=== PATIENT | male | born 1965 | race Caucasian/White ===

== ENCOUNTER 2016-11-15 06:11 | Inpatient (IN) | payer BC ==
[2016-11-10 13:06] LABS: HEMATOCRIT 39.9 % (40.0-51.0); HEMOGLOBIN 13.4 g/dL (13.6-17.8)
[2016-11-10 13:18] LABS: BUN (BLOOD UREA NITROGEN) 16 MG/DL (6-23); CALCIUM, SERUM 8.7 MG/DL (8.5-10.4); CHLORIDE, SERUM 102 MMOL/L (96-112); CO2 (CARBON DIOXIDE) 27 MMOL/L (24-34); CREATININE 1.03 MG/DL (0.70-1.30); GFR AFRICAN AMERICAN 96 ML/MIN (>=60); GFR NON AFRICAN AMERICAN 83 ML/MIN (>=60); POTASSIUM, SERUM 3.9 MMOL/L (3.5-5.3); SODIUM, SERUM 136 MMOL/L (135-148)
[2016-11-10 13:19] LABS: GLUCOSE, SERUM 114 MG/DL (60-99)
[2016-11-10 13:56] LABS: ASCORBIC ACID (UR NOT ORDER) NEG (NEG); BILIRUBIN, URINE NEGATIVE (NEG); KETONE, URINE NEGATIVE (NEG); LEUKOCYTE ESTERASE(NOT OR NEG (NEG); WBC (NOT ORDERED) (RFLEX) < 1 (0-5)
--- NOTE | ~2016-11-15 | DS ---
Discharge Summary [facility] [address] [place]. [address] NAME: NORA KLEIN : 63 STATUS : DIS IN PAT#: [id number] AGE: 51 ADM/REG DATE : 11/15/16 MR#: [id number] REPORT SERV DATE: 11/27/16 DICTATED BY: SAM AMGANA JR. DATE: 11/27/16 REPORT STATUS : Draft TRANSCRIBED BY: MODNirmala DATE: 11/27/16 Data Collection from hospitalization DISCHARGE DIAGNOSES: 1. Left renal mass. 2. Hypertension. 3. Hypercholesterolemia. 4. Gastroesophageal reflux disease. 5. Sleep apnea. CONSULTATIONS: None. PROCEDURES PERFORMED: Laparoscopic partial nephrectomy on the left on 11/15/2016. PATHOLOGY: Left kidney partial nephrectomy - renal cell carcinoma. Histologic type - clear cell size - greatest tumor dimension - 1.9 cm. Tumor focality - unifocal, histologic grade 2. Sarcomatoid features - absent. Microscopic tumor extension - tumor limited to kidney. Renal vein or segmental branch invasion - not resected. Status of margins - deep margin focally involved, peripheral margins free. Lymph nodes - hilar - none resected. Additional pathologic findings - none. Pathologic stage I (pT1a pNX). MEDICATIONS: Tessalon 100 mg three times a day, Wellbutrin XL 300 mg every morning, Colace 100 mg twice a day, Eden 180 mg daily, Vyvanse 60 mg every morning, Prinivil 20 mg every morning, Singulair 10 mg daily, fish oil 1200 mg every morning, Prilosec 20 mg daily as needed, and Sudafed 30 mg every six hours as needed. CONDITION AT DISCHARGE: Stable. DISPOSITION: The patient was discharged home on a regular diet with activities as instructed. He would call my office for a followup appointment. HOSPITAL COURSE: This is a 51-year-old man who had been found to have a 2 cm anterior centrally located renal mass. For the most part, it was endophytic and abutting the renal hilar structures. He presented on the day of this admission to undergo surgical intervention. On CT scan, he was found to have a singular renal artery that was entering the kidney just superior and posterior to the renal vein. He was admitted to the hospital for further evaluation and treatment. Upon admission, he was taken to the operating room where he underwent the above-mentioned procedure. He tolerated this well, and there were no complications. On postop day #1, he had no nausea or vomiting. The Benavides catheter was removed. Clear liquids were started. We encouraged him to ambulate. On 11/17/2016, he had no new complaints. He did have a bowel movement and he was passing flatus. He had mild abdominal distention. 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 We advanced his diet. He continued to progress. Discharge planning was performed. On 11/19/2016, he had multiple bowel movements. He remained afebrile. His vital signs were stable. Discharge instructions were given. Due to his improved and stable condition, he was discharged home with the above-stated instructions. Discharge Summary [address] [place]. [address] NAME: NORA KLEIN : 63 STATUS : DIS IN PAT#: [id number] AGE: 51 ADM/REG DATE : 11/15/16 MR#: [id number] REPORT SERV DATE: 11/27/16 DICTATED BY: SAM MAGANA JR. DATE: 11/27/16 REPORT STATUS : Draft TRANSCRIBED BY: ZACHARIAH DATE: 11/27/16 Information collected by: Lucretia Greenberg I submit the above information as my discharge summary. TG/ZACHARIAH Sam Magana Jr., M.D. / [id number] CC: Priscila Worthington Jr., M.D.
--- NOTE | ~2016-11-15 | OP ---
Record Of Operation [facility] [address] [place]. [address] NAME: NORA KLEIN : 63 STATUS : ADM IN PAT#: [id number] AGE: 51 ADM/REG DATE : 11/15/16 MR#: [id number] REPORT SERV DATE: 11/15/16 DICTATED BY: SAM MAGANA JR. DATE: 11/15/16 REPORT STATUS : Draft TRANSCRIBED BY: MODL DATE: 11/15/16 DATE OF PROCEDURE: 11/15/2016 SURGEON: Sam Magana M.D. PREOPERATIVE DIAGNOSIS: Left renal mass. POSTOPERATIVE DIAGNOSIS: Left renal mass. PROCEDURE PERFORMED: Laparoscopic partial nephrectomy on the left. COMPLICATIONS: None. CONSULTATIONS: None. ANESTHESIA: General with an endotracheal tube. SPECIMENS: Left partial nephrectomy. DRAINS: A 16-Yi Benavides catheter. ESTIMATED BLOOD LOSS: 20 mL. INDICATION: Mr. klein is a 51-year-old gentleman, who is noted to have a 2 cm anterior centrally located renal mass. It was for the most part endophytic and abutting the renal hilar structures. He comes today for partial nephrectomy, possible radical nephrectomy if margins were positive. On CT scan, he was noted to have a singular renal artery that was entering the kidney just superior and posterior to the renal vein. PROCEDURE IN DETAIL: After the patient was identified and proper informed consent was obtained, he was taken to the operating room. General anesthesia was performed without complication using an endotracheal tube. He was then prepped and draped in normal sterile fashion in the modified thoracoabdominal position. A midline incision through the umbilicus was made and a 12 mm trocar was placed into the peritoneal cavity. Peritoneum was inspected and found to be for the most part normal, there were no adhesions noted. The surface of the spleen appeared normal. The colon and small intestine also appeared normal. I then placed two other 12 mm trocars, one just to the left of the falciform ligament, one in the left lower quadrant, and a 5 mm trocar at the costophrenic angle. I then began by mobilizing the left hemicolon and the splenic flexure by incising the white line of Toldt, and the renal colic, and renal colic ligaments. I reflected the colon and its mesentery medially to expose the hilum of the kidney. I dissected down along the renal vein and gonadal vein to expose the renal vein in its entirety. I did not dissect posterior to the renal vein, but did get margins on each side of the superior and inferior surfaces. I also identified the singular renal artery that bifurcated and circumferentially dissected out the renal artery. Once this had been completed, I used intraoperative laparoscopic ultrasound to identify the location of the tumor and incised Gerota's fascia inferior to this and lifted Gerota's Record Of Operation [address] [place]. [address] NAME: NORA KLEIN : 63 STATUS : ADM IN PAT#: [id number] AGE: 51 ADM/REG DATE : 11/15/16 MR#: [id number] REPORT SERV DATE: 11/15/16 DICTATED BY: SAM MAGANA JR. DATE: 11/15/16 REPORT STATUS : Draft TRANSCRIBED BY: ZACHARIAH DATE: 11/15/16 fascia off the anterior surface of the kidney to expose the tumor, which was on the superior medial side of the renal hilum. On ultrasonic imaging this appeared to abut the renal sinus, but there was a small margin that could be taken along the medial surface, my biggest concern was the hilar margin. I then instructed the Anesthesiology team to give the patient 12.5 g of mannitol, this was given five minutes later, the renal artery was clamped, and I excised the tumor with good visibility. I was able to lift the tumor up and come along the right over the course of the superior branch of the renal vein, and then up behind the tumor, and what appeared to be negative margins. There was a glistening yellow color to the bottom surface of the tumor at the apex of the resection, but I did not interrupt the capsule or pseudo capsule of the tumor. Once this had been completed, I placed the specimen into an Endobag and placed off to the side. I then began by closing the central defect of the resection using a 2-0 Vicryl suture in a running fashion, I did this two times with an ischemic time of approximately 20 minutes. I then flashed the bulldog clamp and there was still a little bit of bleeding in the inferior most portion of the defect right over the renal hilum. I placed another [id number] suture in this area which did complete the hemostatic process and the clamp was removed right at 30 minutes of ischemic time. Once this had been completed, I used argon beam to cauterize the defect of the kidney, and then placed pledgeted capsular sutures to close the capsular defect. I also used Floseal and Surgicel over the defect and then closed Gerota's fascia over the top by replacing in its natural position using a 2-0 Vicryl suture. Once this had been completed, I then checked once again for hemostasis. I looked at the surface of the renal artery and appeared to be pulsatile and functioning well. The kidney was nice pink in color and I did not note any evidence of any ischemia at that point, I removed the Endobag through the umbilical incision and as well as removing the other trocars. I then closed the umbilicus using a 0 looped PDS suture in a running fashion. The skin of each incision was then closed with 3-0 Vicryl in the Adiel's fascia and a 4-0 Monocryl in the skin. The patient was awakened in the operating room and transferred to the postanesthesia care unit in stable condition. CHRISTIANO/ZACHARIAH Sam Magana Jr., M.D. / [id number] CC: Sam Magana Jr., M.D.
[~2016-11-15 06:11] MED LIST: ALLEGRA180 PO; CLARIT10 PO; DOX10 PO; EFFEX37.5 PO; FISH OIL1200 MG PO; MULTIVITAMI1 PO; PRILO PO; PRIN20 PO; SINGULAIR1 PO; SUDAFED PO; TESS PO; VIB100 PO; VYVANSE60 MG OR; WELLXL300 PO; [UNRECOGNIZED DRUG - OTHER] PO
[2016-11-15 12:26] LABS: BASOPHILS 0 %; EOSINOPHILS 0.6 %; EOSINOPHILS ABSOLUTE 0.03 10/3/uL (0.0-0.53); HEMOGLOBIN 11.8 g/dL (13.6-17.8); IMMATURE GRANULOCYTES 0.4 %; IMMATURE GRANULOCYTES ABSOLUTE 0.02 10/3/uL (0.0-0.11); LYMPHOCYTES 11.5 %; LYMPHOCYTES ABSOLUTE 0.59 10/3/uL (0.67-4.30); MEAN CORPUS HGB CONC 33.9 g/dL (32.0-36.0); MEAN CORPUSCULAR HEMOGLOB 25.6 pg (26.0-34.0); MEAN CORPUSCULAR VOLUME 75.5 fL (80-100); MEAN PLATELET VOLUME 8.6 fL (9.2-13.0); MONOCYTES 2.3 %; MONOCYTES ABSOLUTE 0.12 10/3/uL (0.21-1.20); NEUTROPHILS 85.2 %; NEUTROPHILS ABSOLUTE 4.37 10/3/uL (2.02-8.40); RBC DISTRIBUTION WIDTH 14.2 % (12.0-16.0); RED CELL COUNT 4.61 10/6/uL (4.7-6.1); WHITE BLOOD CELLS 5.1 10/3/uL (4.5-10.5)
[2016-11-15 12:27] LABS: HEMATOCRIT 34.8 % (40.0-51.0); MANUAL DIFF NO %; PLATELET COUNT 157 10/3/uL (150-400)
[2016-11-15 12:51] LABS: BUN (BLOOD UREA NITROGEN) 12 MG/DL (6-23); CALCIUM, SERUM 8.4 MG/DL (8.5-10.4); CHLORIDE, SERUM 102 MMOL/L (96-112); CO2 (CARBON DIOXIDE) 26 MMOL/L (24-34); GFR AFRICAN AMERICAN 80 ML/MIN (>=60); GFR NON AFRICAN AMERICAN 69 ML/MIN (>=60); GLUCOSE, SERUM 146 MG/DL (60-99); POTASSIUM, SERUM 4.8 MMOL/L (3.5-5.3); SODIUM, SERUM 135 MMOL/L (135-148)
[2016-11-16 05:33] LABS: BASOPHILS 0.1 %; BASOPHILS ABSOLUTE 0.01 10/3/uL (0.0-0.16); EOSINOPHILS 0 %; HEMATOCRIT 35.1 % (40.0-51.0); HEMOGLOBIN 11.8 g/dL (13.6-17.8); IMMATURE GRANULOCYTES 0.3 %; IMMATURE GRANULOCYTES ABSOLUTE 0.03 10/3/uL (0.0-0.11); LYMPHOCYTES 10.3 %; LYMPHOCYTES ABSOLUTE 0.99 10/3/uL (0.67-4.30); MEAN CORPUS HGB CONC 33.6 g/dL (32.0-36.0); MEAN CORPUSCULAR HEMOGLOB 25.5 pg (26.0-34.0); MONOCYTES 8.8 %; MONOCYTES ABSOLUTE 0.85 10/3/uL (0.21-1.20); NEUTROPHILS 80.5 %; NEUTROPHILS ABSOLUTE 7.75 10/3/uL (2.02-8.40); PLATELET COUNT 185 10/3/uL (150-400); RBC DISTRIBUTION WIDTH 14.2 % (12.0-16.0); RED CELL COUNT 4.62 10/6/uL (4.7-6.1)
[2016-11-16 05:34] LABS: MANUAL DIFF NO %; WHITE BLOOD CELLS 9.6 10/3/uL (4.5-10.5)
[2016-11-16 05:48] LABS: BUN (BLOOD UREA NITROGEN) 12 MG/DL (6-23); CALCIUM, SERUM 8.2 MG/DL (8.5-10.4); CHLORIDE, SERUM 103 MMOL/L (96-112); CO2 (CARBON DIOXIDE) 27 MMOL/L (24-34); GFR AFRICAN AMERICAN 100 ML/MIN (>=60); GFR NON AFRICAN AMERICAN 86 ML/MIN (>=60); GLUCOSE, SERUM 146 MG/DL (60-99); POTASSIUM, SERUM 4.3 MMOL/L (3.5-5.3); SODIUM, SERUM 140 MMOL/L (135-148)
[2016-11-17 08:31] LABS: BASOPHILS 0 %; EOSINOPHILS 0.1 %; EOSINOPHILS ABSOLUTE 0.01 10/3/uL (0.0-0.53); HEMATOCRIT 37.5 % (40.0-51.0); HEMOGLOBIN 12.5 g/dL (13.6-17.8); IMMATURE GRANULOCYTES 0.3 %; IMMATURE GRANULOCYTES ABSOLUTE 0.03 10/3/uL (0.0-0.11); LYMPHOCYTES 10.6 %; LYMPHOCYTES ABSOLUTE 1.09 10/3/uL (0.67-4.30); MEAN CORPUS HGB CONC 33.3 g/dL (32.0-36.0); MEAN CORPUSCULAR HEMOGLOB 25.6 pg (26.0-34.0); MEAN CORPUSCULAR VOLUME 76.7 fL (80-100); MONOCYTES 14.2 %; MONOCYTES ABSOLUTE 1.45 10/3/uL (0.21-1.20); NEUTROPHILS 74.8 %; NEUTROPHILS ABSOLUTE 7.66 10/3/uL (2.02-8.40); PLATELET COUNT 177 10/3/uL (150-400); RBC DISTRIBUTION WIDTH 14.6 % (12.0-16.0); RED CELL COUNT 4.89 10/6/uL (4.7-6.1); WHITE BLOOD CELLS 10.2 10/3/uL (4.5-10.5)
[2016-11-17 08:38] LABS: MANUAL DIFF NO %
[2016-11-17 08:45] LABS: BUN (BLOOD UREA NITROGEN) 8 MG/DL (6-23); CALCIUM, SERUM 8.6 MG/DL (8.5-10.4); CHLORIDE, SERUM 101 MMOL/L (96-112); CO2 (CARBON DIOXIDE) 26 MMOL/L (24-34); CREATININE 0.99 MG/DL (0.70-1.30); GFR AFRICAN AMERICAN 101 ML/MIN (>=60); GFR NON AFRICAN AMERICAN 87 ML/MIN (>=60); GLUCOSE, SERUM 122 MG/DL (60-99); SODIUM, SERUM 136 MMOL/L (135-148)
[2016-11-18 07:30] LABS: BASOPHILS 0 %; EOSINOPHILS 0.2 %; EOSINOPHILS ABSOLUTE 0.02 10/3/uL (0.0-0.53); HEMOGLOBIN 13.1 g/dL (13.6-17.8); IMMATURE GRANULOCYTES 0.4 %; IMMATURE GRANULOCYTES ABSOLUTE 0.04 10/3/uL (0.0-0.11); LYMPHOCYTES 13.1 %; LYMPHOCYTES ABSOLUTE 1.28 10/3/uL (0.67-4.30); MEAN CORPUS HGB CONC 33.6 g/dL (32.0-36.0); MEAN CORPUSCULAR HEMOGLOB 25.5 pg (26.0-34.0); MONOCYTES 12.4 %; MONOCYTES ABSOLUTE 1.21 10/3/uL (0.21-1.20); NEUTROPHILS 73.9 %; NEUTROPHILS ABSOLUTE 7.19 10/3/uL (2.02-8.40); PLATELET COUNT 193 10/3/uL (150-400); RBC DISTRIBUTION WIDTH 14.7 % (12.0-16.0); RED CELL COUNT 5.13 10/6/uL (4.7-6.1); WHITE BLOOD CELLS 9.7 10/3/uL (4.5-10.5)
[2016-11-18 07:32] LABS: MANUAL DIFF NO %
[2016-11-18 07:41] LABS: BUN (BLOOD UREA NITROGEN) 9 MG/DL (6-23); CALCIUM, SERUM 9.1 MG/DL (8.5-10.4); CHLORIDE, SERUM 101 MMOL/L (96-112); CO2 (CARBON DIOXIDE) 26 MMOL/L (24-34); CREATININE 1.01 MG/DL (0.70-1.30); GFR AFRICAN AMERICAN 99 ML/MIN (>=60); GFR NON AFRICAN AMERICAN 85 ML/MIN (>=60); GLUCOSE, SERUM 111 MG/DL (60-99); POTASSIUM, SERUM 4.2 MMOL/L (3.5-5.3); SODIUM, SERUM 138 MMOL/L (135-148)
[2016-11-19] MEDS ORDERED: DSS PO (11:27)
== END 2016-11-19 17:25 | disposition home or self-care (01) | DRG 658 ==
LOC: SDC/OF 06:11 → PACU 11:49 → 4SO 15:06
PROVIDERS: Urology
PROC: 0TB14ZZ Excision of Left Kidney, Percutaneous Endoscopic Approach (ICD-10-PCS; principal; 2016-11-15 07:45)
PROC: BT42ZZZ Ultrasonography of Left Kidney (ICD-10-PCS; principal; 2016-11-15 07:45)
DX: D41.12 Neoplasm of uncertain behavior of left renal pelvis (principal); I10 Essential (primary) hypertension; G47.33 Obstructive sleep apnea (adult) (pediatric); D64.9 Anemia, unspecified; F90.9 Attention-deficit hyperactivity disorder, unspecified type; K21.9 Gastro-esophageal reflux disease without esophagitis; E78.00 Pure hypercholesterolemia, unspecified
CPT/HCPCS: 36415; 80048; 81001; 83735; 85014; 85018; 85025; 86850; 86900; 86901; 88307; 88312; 93005; A9270-GY; C1765; J0690; J0694; J2150; J2250; J2270; J2370; J2405; J2710; J2795; J3010

== ENCOUNTER 2017-01-04 09:39 | Emergency (ER) | payer BC ==
--- NOTE | ~2017-01-04 | CN ---
Consultation Report [facility] [address] [place]. [address] NAME: NORA KLEIN : 63 STATUS : [facility] PAT#: [id number] AGE: 51 ADM/REG DATE : 01/04/17 MR#: [id number] REPORT SERV DATE: 01/04/17 DICTATED BY: ADEEL HALL DATE: 01/04/17 REPORT STATUS : Draft TRANSCRIBED BY: MODL DATE: 01/04/17 MEDICAL CONSULTATION NOTE DATE OF CONSULTATION: 01/04/2017 Admission on 01/04/2017, in the emergency room. HISTORY OF PRESENT ILLNESS: This is a 51-year-old white male, who got up this morning, dizzy. He proceeded on towards work and became more dizzy and nauseated, he went to the nurse practitioner at work at [employer]. He was given some meclizine and Zofran and sent to the emergency room. Dr. Bello saw the patient earlier. He gave him Zofran and had a CT scan of the brain done. The patient says he was irrigating his sinuses as is his usual habit and he feels like he got some water in the inner ear. He is now dizzy but able to sit up on his own. No nausea or vomiting. He now wants to go home. I had initially been consulted for admission to the hospital for observation. PAST HISTORY: He had renal cancer in the past. SOCIAL HISTORY: He lives with his in [place], it is in [facility] in [place]. He does not smoke or drink. He works at [employer]. FAMILY HISTORY: There are no brain tumors in the family. REVIEW OF SYSTEMS: He has had no chest pain or shortness of breath. He has no unilateral weakness. No numbness in his upper extremities, face, or any lateralizing signs. His nausea and vomiting have cleared. PHYSICAL EXAMINATION: VITAL SIGNS: His blood pressure is 140/70 with a heart rate of 80, respiratory rate 16, afebrile. HEENT: EOMI. Sclerae clear. Pharynx clear. TMs are intact. There is no redness or bulging of the disc. The TMs are both opaque bilaterally. CHEST: Clear. HEART: Regular S1, S2 without any murmur, gallop, click, or rub. ABDOMEN: Soft, nontender. Bowel sounds positive. No HSM. EXTREMITIES: He has had no edema. Distal pulses are intact, dorsalis pedis and posterior tibial. NEUROLOGIC: He has no lateral nystagmus. His extraocular moves are intact. says his eyes are positioned as usual. There is slight dysconjugate gaze. Pharynx is clear with normal midline tongue. His senior test engineer is equal and symmetric. Finger-to- nose is intact. There is no double vision. Consultation Report [address] [place]. [address] NAME: NORA KLEIN : 63 STATUS : DEP ER PAT#: [id number] AGE: 51 ADM/REG DATE : 01/04/17 MR#: [id number] REPORT SERV DATE: 01/04/17 DICTATED BY: ADEEL HALL DATE: 01/04/17 REPORT STATUS : Draft TRANSCRIBED BY: ZACHARIAH DATE: 01/04/17 He is able to sit up unaided now. LABORATORY DATA: Laboratory was reviewed. CT brain with contrast showed negative. Noncontrasted CT scan of the brain, chest x-ray portable was done for evidence of no acute process. His sodium is 141, potassium 4.1, creatinine 1.05, glucose of 154. Troponin less than 0.02. Urinalysis showed specific gravity 1.017, pH 6, negative dip, wbc's 2 per high-powered field. White count 6.2, hemoglobin 11.9, hematocrit 36.0, MCV is 75, and platelet count 169. INR 1.1. ASSESSMENT: 1. Acute vertigo likely associated with nasal irrigation. 2. Allergic rhinitis. 3. Hypertension. 4. Chronic sinusitis. 5. History of partial nephrectomy due to kidney cancer. Dr. Sam Magana did this. 6. History of environmental allergies. PLAN: The patient is going to go home with scopolamine patch. He has 6 days of meclizine he could take at home but oral and Phenergan rectally. I will give him some oral Phenergan as well for his nausea if it should recur. I will give him Decadron 4 mg p.o. before departure. He will take his meclizine, add the Valium, scopolamine patch, Decadron x1 dose, Phenergan p.r.n. DB/MODL Adeel Hall M.D. / [id number] CC: MD Hong Rodriguez M.D. William Young Jr., M.D.
[~2017-01-04 09:39] MED LIST changes: +DSS PO
[2017-01-04 10:36] LABS: BASOPHILS 0.2 %; BASOPHILS ABSOLUTE 0.01 10/3/uL (0.0-0.16); EOSINOPHILS 3.1 %; EOSINOPHILS ABSOLUTE 0.19 10/3/uL (0.0-0.53); ER CBC TAT 0 Hrs 11 Mins; HEMOGLOBIN 11.9 g/dL (13.6-17.8); IMMATURE GRANULOCYTES 0.6 %; IMMATURE GRANULOCYTES ABSOLUTE 0.04 10/3/uL (0.0-0.11); LYMPHOCYTES 8.9 %; LYMPHOCYTES ABSOLUTE 0.55 10/3/uL (0.67-4.30); MANUAL DIFF NO %; MEAN CORPUS HGB CONC 33.1 g/dL (32.0-36.0); MEAN CORPUSCULAR VOLUME 75.6 fL (80-100); MONOCYTES 8.7 %; MONOCYTES ABSOLUTE 0.54 10/3/uL (0.21-1.20); NEUTROPHILS 78.5 %; NEUTROPHILS ABSOLUTE 4.88 10/3/uL (2.02-8.40); PLATELET COUNT 169 10/3/uL (150-400); RBC DISTRIBUTION WIDTH 16.1 % (12.0-16.0); RED CELL COUNT 4.76 10/6/uL (4.7-6.1); WHITE BLOOD CELLS 6.2 10/3/uL (4.5-10.5)
[2017-01-04 10:39] LABS: INTERNATIONAL NORMAL RATI 1.1 UNITS (-); PARTIAL THROMBO TIME 28.6 SEC (22.5-37.2); PROTIME (NOT ORD) 14.1 SEC (12.0-14.5)
[2017-01-04 10:46] LABS: ASCORBIC ACID (UR NOT ORDER) 40 (NEG); BILIRUBIN, URINE NEGATIVE (NEG); ER URINALYSIS TAT 0 Hrs 21 Mins; KETONE, URINE NEGATIVE (NEG); LEUKOCYTE ESTERASE(NOT OR NEG (NEG); NITRITE (URINE) NEG (NEG); WBC (NOT ORDERED) (RFLEX) 2 (0-5)
[2017-01-04 10:48] LABS: BUN (BLOOD UREA NITROGEN) 18 MG/DL (6-23); CHEST PAIN PROFILE TAT 0 Hrs 23 Mins; CHLORIDE, SERUM 105 MMOL/L (96-112); CO2 (CARBON DIOXIDE) 28 MMOL/L (24-34); CREATININE 1.05 MG/DL (0.70-1.30); GFR AFRICAN AMERICAN 94 ML/MIN (>=60); GFR NON AFRICAN AMERICAN 81 ML/MIN (>=60); GLUCOSE, SERUM 157 MG/DL (60-99); POTASSIUM, SERUM 4.1 MMOL/L (3.5-5.3); SODIUM, SERUM 141 MMOL/L (135-148); TROPONIN I <0.02 NG/ML (<0.05)
[2017-01-04] MEDS ORDERED: VYVANSE60 MG PO (13:21)
[2017-01-04] MEDS ORDERED: PRIN20 PO (13:25)
[2017-01-04] MEDS ORDERED: MINOCIN50 PO (13:25)
[2017-01-04] MEDS ORDERED: SINGULAIR1 PO (13:25)
[2017-01-04] MEDS ORDERED: WELLXL300 PO (13:25)
[2017-01-04] MEDS ORDERED: PRILO PO (13:26)
[2017-01-04] MEDS ORDERED: FLOMAX4 PO (13:26)
[2017-01-04] MEDS ORDERED: ALLEGRA180 PO (13:26)
[2017-01-04] MEDS ORDERED: MULTIVITAMI1 PO (13:26)
[2017-01-04] MEDS ORDERED: FISH OIL1200 MG PO (13:27)
[2017-01-04] MEDS ORDERED: ARIMIDEX1 PO (13:27)
[2017-01-04] MEDS ORDERED: TESTOSTERONE PELLETS (13:27)
== END 2017-01-04 15:06 | disposition admitted as inpatient to this hospital (09) ==
LOC: ER 09:39
PROVIDERS: Emergency Medicine
DX: R42 Dizziness and giddiness (principal); I10 Essential (primary) hypertension; K21.9 Gastro-esophageal reflux disease without esophagitis; Z88.8 Allergy status to other drugs, medicaments and biological substances; Z79.899 Other long term (current) drug therapy
CPT/HCPCS: 70450; 71010; 80048; 81001; 83735; 84484; 85025; 85610; 85730; 93005; 96374; 99285; A9270-GY; J2405

== ENCOUNTER 2017-01-05 11:32 | Emergency (ER) | payer BC ==
[2017-01-05 11:14] LABS: BASOPHILS 0 %; EOSINOPHILS 2.2 %; EOSINOPHILS ABSOLUTE 0.14 10/3/uL (0.0-0.53); ER CBC TAT 0 Hrs 08 Mins; HEMATOCRIT 35.3 % (40.0-51.0); HEMOGLOBIN 11.3 g/dL (13.6-17.8); IMMATURE GRANULOCYTES 0.2 %; IMMATURE GRANULOCYTES ABSOLUTE 0.01 10/3/uL (0.0-0.11); LYMPHOCYTES 19.1 %; MANUAL DIFF NO %; MEAN CORPUSCULAR HEMOGLOB 24.5 pg (26.0-34.0); MEAN CORPUSCULAR VOLUME 76.4 fL (80-100); MONOCYTES 8.3 %; MONOCYTES ABSOLUTE 0.52 10/3/uL (0.21-1.20); NEUTROPHILS 70.2 %; PLATELET COUNT 194 10/3/uL (150-400); RBC DISTRIBUTION WIDTH 16.4 % (12.0-16.0); RED CELL COUNT 4.62 10/6/uL (4.7-6.1); WHITE BLOOD CELLS 6.3 10/3/uL (4.5-10.5)
[2017-01-05 11:31] LABS: A/G RATIO 0.6 (0.7-1.9); ALBUMIN 3.1 G/DL (3.5-5.0); ALKALINE PHOSPHATASE 78 U/L (45-117); BUN (BLOOD UREA NITROGEN) 15 MG/DL (6-23); CALCIUM, SERUM 9.3 MG/DL (8.5-10.4); CHLORIDE, SERUM 108 MMOL/L (96-112); CO2 (CARBON DIOXIDE) 29 MMOL/L (24-34); CREATININE 1.13 MG/DL (0.70-1.30); GFR AFRICAN AMERICAN 86 ML/MIN (>=60); GFR NON AFRICAN AMERICAN 74 ML/MIN (>=60); GLUCOSE, SERUM 99 MG/DL (60-99); POTASSIUM, SERUM 4.5 MMOL/L (3.5-5.3); SGOT(AST) 17 U/L (5-40); SGPT(ALT) 26 U/L (5-65); SODIUM, SERUM 143 MMOL/L (135-148); TOTAL BILIRUBIN 0.3 MG/DL (0-1.2); TOTAL PROTEIN 8.1 G/DL (6.0-8.5); TROPONIN I <0.02 NG/ML (<0.05)
[~2017-01-05 11:32] MED LIST changes: +ARIMIDEX1 PO; +FLOMAX4 PO; +MINOCIN50 PO; +TESTOSTERONE PELLETS; +VYVANSE60 MG PO
== END 2017-01-05 15:28 | disposition home or self-care (01) ==
LOC: ER 11:32
PROVIDERS: Nurse Practitioner Acute Care
DX: R42 Dizziness and giddiness (principal); I10 Essential (primary) hypertension; Z85.53 Personal history of malignant neoplasm of renal pelvis; Z91.048 Other nonmedicinal substance allergy status; Z88.8 Allergy status to other drugs, medicaments and biological substances; Z79.899 Other long term (current) drug therapy
CPT/HCPCS: 70551; 80053; 84484; 85025; 93005; 99284; A9270-GY